=== PATIENT | female | born 1955 | race Caucasian/White ===

== ENCOUNTER → 2016-07-03 | Outpatient (CLI) | payer BC ==
--- NOTE | 2016-07-03 09:53 | Diagnostic Imaging Report ---
PROCEDURE: CT chest without contrast. TECHNIQUE: Multiple contiguous axial images were obtained through the chest without the use of intravenous contrast. INDICATION: Dyspnea. COMPARISON: Comparison 01/24/2016. FINDINGS: There is a 1.3 cm precarinal lymph node seen, unchanged from 01/04/2016 of questionable significance. Borderline sized lymph nodes in the infracarinal region is seen. No other significantly prominent lymph nodes noted in the mediastinum. The hilar vessels are not opacified. No hilar mass is obvious. Previously seen right hilar peripherally calcified nodes about 1.3 cm in size is not well delineated without obvious enlargement appreciated. Tiny calcified granuloma in the superior segment of the right lower lobe is seen and the above-mentioned lymph nodes could relate to prior granulomatous process. There is no mediastinal mass. The heart size is normal. There is no pericardial effusion. No pleural effusion. The thoracic aorta is normal in caliber. No axillary lymphadenopathy seen. The lungs demonstrate minimal apical paraseptal emphysema. There is otherwise no significant consolidation, mass or suspicious pulmonary nodule. Sections of the upper abdomen appear grossly unremarkable. The osseous structures appear grossly unremarkable. IMPRESSION: Nonspecific mildly prominent mediastinal and right hilar lymph nodes without definite change from 01/24/2016. No acute process. Dictated by: Dictated on workstation # [id number]
== END ==
LOC: RAD 07:23
PROVIDERS: ATTEND Nurse Practitioner Family
DX: R06.00 Dyspnea, unspecified (principal); R91.1 Solitary pulmonary nodule; Z72.0 Tobacco use
CPT/HCPCS: 71250

== ENCOUNTER → 2017-01-28 | Outpatient (CLI) | payer BC ==
--- NOTE | 2017-01-28 08:50 | Diagnostic Imaging Report ---
PROCEDURE: CT chest without contrast. TECHNIQUE: Multiple contiguous axial images were obtained through the chest without the use of intravenous contrast. INDICATION: Adenopathy. COMPARISON: 07/03/2016. FINDINGS: There is a 2 mm nodule in the posterior aspect of the right lung base on image 34/series 2. There is no pleural effusion. There is no pneumothorax. There is a stable right hilar node measuring 1.3 cm. There is an unchanged precarinal lymph node measuring 1.2 cm. There is a small pericardial effusion. The visualized intra-abdominal structures are unremarkable. There are mild degenerative changes in the spine. IMPRESSION: Stable right hilar and mediastinal adenopathy since the prior examination of 07/03/2016. There is also an unchanged 2 mm noncalcified pulmonary nodule in the right lung base. No other acute abnormality in the chest. Dictated by: Dictated on workstation # [id number]
== END ==
LOC: RAD 07:37
PROVIDERS: ATTEND Nurse Practitioner Family
DX: R91.1 Solitary pulmonary nodule (principal); R59.0 Localized enlarged lymph nodes; Z72.0 Tobacco use; R06.00 Dyspnea, unspecified
CPT/HCPCS: 71250